=== PATIENT | male | born 1975 | race Caucasian/White ===

== ENCOUNTER 2021-11-14 20:02 | Emergency (ER) | payer OTHER ==
[~2021-11-14] VITALS: Ht 180.3 cm; Wt 102.2 kg
[2021-11-14 20:10] VITALS: BP 164/121
[2021-11-14 20:12] VITALS: BP 153/119
[2021-11-14 20:16] VITALS: BP 155/121
[2021-11-14 20:20] VITALS: BP 183/117
[2021-11-14 21:14] VITALS: BP 183/117
== END 2021-11-14 21:14 | disposition home or self-care (01) | DRG 923 ==
LOC: ED 20:02
DX: Z04.1 Encounter for examination and observation following transport accident (principal); I10 Essential (primary) hypertension